=== PATIENT | male | born 2000 | race Hispanic/Latino ===

== ENCOUNTER 2024-07-31 18:22 | Emergency (ER) | payer SELFPAY ==
[~2024-07-31] VITALS: Ht 175.3 cm; Wt 137.9 kg
[2024-07-31] MEDS: TETRACAINE HCL 0.5% 4 ML OPHTH SOLN OP ONE (19:52)
[2024-07-31] MEDS: FLUORESCEIN SODIUM 1 STRIP STRIP OP ONE (19:52)
[2024-07-31] MEDS: TETRACAINE HCL 0.5% 4 ML OPHTH SOLN ONE (19:53)
[2024-07-31] MEDS: FLUORESCEIN SODIUM 1 STRIP STRIP ONE (19:53)
[2024-07-31] MEDS ORDERED: CILO2.5OS OP (20:13)
--- NOTE | 2024-07-31 20:18 | ERN ---
General Chief Complaint: Eye Problems Stated Complaint: EYE PAIN Time Seen by MD: 18:28 Time Seen by Midlevel: 18:28 Source: patient History of Present Illness Initial Comments 23-year-old male who presents to the emergency department due to left eye pain onset two days. Patient reports he felt something fall into his eye and has been having discomfort and redness since. Denies any direct injuries or trauma to the eye. Patient states he has having some discharge from the left eye denies any fever, blurry vision or further associated symptoms. Patient does use contacts. Denies significant past medical history. Allergies: Coded Allergies: No Known Drug Allergies (Unverified Allergy, Unknown, 07/31/24) Home Meds Active Scripts Ciprofloxacin HCl (Ciloxan 0.3% Ophth Soln) 0.3 % Opsol, 1 DROP OP QID for 7 Days, #5 ML 0 Refills Prov:CHANTEL FLEMING 07/31/24 Past Medical History Past Medical History: No Pertinent History Past Surgical History: None ROS Dictation Constitutional: Negative for fever,chills, and weight loss Eyes: Positive for left eye pain, redness, discharge ENT: Negative for injury,pain or swelling Cardiovascular: Negative for chest pain, palpitations, and edema Respiratory: Negative for shortness of breath, cough, and wheezing, Abdomen/GI: Negative for abdominal pain, nausea, vomiting, diarrhea, and constipation Back: Negative for injury and pain : Negative for painful urination, bleeding or discharge MS/Extremity: Negative for injury and deformity Skin: Negative for rash, and discoloration Neuro: Negative for headache, weakness, numbness, tingling, and seizure Psych: Negative for suicide ideation, homicidal ideation, and hallucinations Physical Exam Physical Exam Dictation General: awake, alert, no acute distress Head/Face: Normocephalic, atraumatic Eyes: PERRL, EOMI, erythematous conjunctiva of the left eye, normal vision, mild discharge noted to the left eye ENT: oral cavity clear, oral mucosa moist Neck: Supple, normal range of motion Cardiovascular: RRR, normal S1/S2 Respiratory: No respiratory distress Skin: Warm, dry, normal turgor, no rash MS/Extremity: Pulses equal, no cyanosis, neurovascular intact, FROM Neuro: COAx4, GCS 15, no neurological deficits, normal gait Psych: Normal behavior, mood, and affect normal MDM MDM: Differential diagnosis: Abrasion, foreign object, conjunctivitis Rationale: 23-year-old male who presents to the emergency department due to left eye pain onset two days. Patient reports he felt something fall into his eye and has been having discomfort and redness since. Denies any direct injuries or trauma to the eye. Patient states he has having some discharge from the left eye denies any fever, blurry vision or further associated symptoms. Patient does use contacts. Denies significant past medical history. Per physical examination erythematous conjunctiva noted bilaterally left worse than right, normal vision, mild discharge noted to the left eye. Wood's lamp exam performed in the ED, abrasion noted to the left cornea, no debris or foreign object noted. Eye was washed out using saline. Patient and family were educated on findings, diagnosis, and treatment plan. Antibiotics prescribed for outpatient treatment. Patient was advised to follow up with the licensed practical nurse clinic nurse and PCP. Return to the emergency department if any worsening symptoms. Patient verbalized understanding. Patient is stable for discharge. There are no social concerns with this patient. I independently interpreted the test that were performed, results were reviewed by me and considered findings on radiology if ordered. Medical management and examination interpretation discussions were had by me with other qualified healthcare professionals as indicated for the patient's care. ED Course Orders Procedure Category Date Status Time Fluorescein Sodium PHA 07/31/24 Complete (Ijomb-G-Wssbh At) 19:30 Tetracaine Hcl PHA 07/31/24 Complete (Pontocaine 0.5% 19:30 Fluorescein Sodium PHA 07/31/24 Complete (Kwcdo-Q-Hayiu At) 19:51 Tetracaine Hcl PHA 07/31/24 Complete (Pontocaine 0.5% 19:51 Erythrocin 0.5% Ophth PHA 07/31/24 In Process Oint (Erythrocin 0 20:30 Tobramycin Sulfate PHA 07/31/24 Logged (Tobrex 0.3% Ophth So 20:30 Current Medications Medications (Trade) Dose Ordered Sig/Javad Route PRN Reason Start Time Stop Time Status Last Admin Dose Admin Erythromycin (Erythrocin 0.5% Ophth Oint) 1 appl ONCE ONCE OU 07/31/24 20:30 07/31/24 20:31 Fluorescein Sodium (Jynza-X-Gyqpm At) 1 strip ONCE ONCE OP 07/31/24 19:30 07/31/24 19:51 DC 07/31/24 19:52 Fluorescein Sodium (Fnnss-A-Zhfgv At) 1 strip STK-MED ONCE .ROUTE 07/31/24 19:51 07/31/24 19:51 DC Tetracaine HCl (Pontocaine 0.5% Ophth Soln) 1 OR 2 DROPS ONCE ONCE OP 07/31/24 19:30 07/31/24 20:16 DC 07/31/24 19:52 Tetracaine HCl (Pontocaine 0.5% Ophth Soln) 20 drop STK-MED ONCE .ROUTE 07/31/24 19:51 07/31/24 19:51 DC Tobramycin Sulfate (TobREX 0.3% OPHTH SOLN) 1 drop ONCE ONCE OU 07/31/24 20:30 07/31/24 20:31 UNV Vital Signs Date Time Temp Pulse Resp B/P (MAP) Pulse Ox O2 Delivery O2 Flow Rate FiO2 07/31/24 18:50 98.4 82 20 148/92 98 Room Air* 0 21 07/31/24 18:42 98.4 89 20 153/106 98 Room Air 0 DX & DISP Disposition: Discharge Departure Impression: Primary Impression: Corneal abrasion, left Additional Impression: Conjunctivitis Condition: Stable Scripts Ciprofloxacin HCl (Ciloxan 0.3% Ophth Soln) 0.3 % Opsol 1 DROP OP QID for 7 Days, #5 ML 0 Refills Prov: CHNATEL FLEMING 07/31/24 Additional Instructions: Discharge home. Rest. Follow up with primary care DrVelia in 24 hours. Return to the ER for any acute changes or worsening symptoms. If any medications were prescribed take as directed. Okay to continue home medications unless otherwise discussed during your visit in the emergency room today. Patient was also advised to follow-up with primary care physician in 1 to 2 days for continued monitoring. Referrals: JUAN HANLEY (PCP) I performed the substantive portion of the visit. I have reviewed and personally made and approve the management plan that is documented in the notes by myself or the [facility]. I acknowledge full responsibility for the patient's management plan. CHANTEL FLEMING Jul 31, 2024 20:18
[2024-07-31] MEDS: ERYTHROMYCIN BASE 0.5% OPHTH OINT 1 GM TUBE OU ONE (20:43)
[2024-07-31] MEDS: tobRAMYCin 0.3% 5 ML OPTH SOLN OU ONE (20:43)
[2024-07-31] MEDS: hydrALAZine HCL 10 MG TABLET PO SCH (21:22)
[2024-07-31 21:57] VITALS: BP 139/74; PULSE 80; RESP 18; TEMP 98.4; O2SAT 98
== END 2024-07-31 21:58 | disposition home or self-care (01) ==
LOC: EDH 18:22
DX: S05.02XA Injury of conjunctiva and corneal abrasion without foreign body, left eye, initial encounter (principal); H10.9 Unspecified conjunctivitis; Z79.899 Other long term (current) drug therapy; X58.XXXA Exposure to other specified factors, initial encounter; Y93.89 Activity, other specified; Y92.89 Other specified places as the place of occurrence of the external cause; Y99.8 Other external cause status
CPT/HCPCS: 99283; 99284